=== PATIENT | female | born 1955 ===

== ENCOUNTER 2017-08-04 16:26 | Inpatient (IN) | payer MEDICAID, OTHER ==
[2017-08-04 16:26] VITALS: BMI 38.1
[2017-08-04] MEDS ORDERED: Sodium Chloride 0.9% 1,000 ML IV STA (17:11)
[2017-08-04] MEDS ORDERED: Sodium Chloride 0.9% 1,000 ML ONE ×2 (17:31→22:20)
--- NOTE | 2017-08-04 17:31 | C.PDOC ---
History Of Present Illness Patient is a 62 y/o female who presents to the ED with a complaint of generalized abdominal pain vomiting for the last 3 days. Patient admits to normal bowel movement earlier today. Patient is a poor historian. Denies any other physical complaints at this time. Time Seen by Provider: 08/04/17 16:47 Chief Complaint (Nursing): Abdominal Pain History Per: Patient History/Exam Limitations: no limitations Onset/Duration Of Symptoms: Days (3) Current Symptoms Are (Timing): Still Present Associated Symptoms: Vomiting Last Bowel Movement: Today Recent travel outside of the [place]: No Past Medical History Reviewed: Historical Data, Nursing Documentation, Vital Signs Vital Signs: Last Vital Signs Temp 99.9 F H 08/04/17 16:33 Pulse 111 H 08/04/17 16:33 Resp 21 08/04/17 16:33 BP 149/79 08/04/17 16:33 Pulse Ox 97 08/04/17 17:34 - Medical History PMH: Arthritis, Cardia Arrhythmia, Diabetes, Gastritis, Gall Bladder Disease, Hypercholesterolemia Denies: Chronic Kidney Disease Surgical History: Cholecystectomy, Endoscopy - [facility] Procedures CLOSURE SKIN & SUBCUTANEOUS NEC (07/21/14) DESTRUCT ABD WALL LESION (01/17/14) ESOPHAGOGASTRODUODENOSCOPY [EGD] W/CLOSED BIOPSY (03/10/14) TETANUS TOXOID ADMINIST (07/21/14) Family History: States: Unknown Family Hx - Social History Hx Tobacco Use: No Hx Alcohol Use: No Hx Substance Use: No - Immunization History Hx Tetanus Toxoid Vaccination: No Hx Influenza Vaccination: No Hx Pneumococcal Vaccination: No Review Of Systems Gastrointestinal: Positive for: Vomiting, Abdominal Pain (generalized) Physical Exam - Physical Exam Appears: Well, Non-toxic, Other (tearful) Skin: Normal Color, Warm, Dry Head: Atraumatic, Normacephalic Oral Mucosa: Moist Cardiovascular: Rhythm Regular, No Murmur Respiratory: Normal Breath Sounds, No Rales, No Rhonchi, No Wheezing Gastrointestinal/Abdominal: Soft, Tenderness (diffusely) ED Course And Treatment - Laboratory Results Result Diagrams: 08/04/17 17:53 08/04/17 17:53 O2 Sat by Pulse Oximetry: 97 Progress Note: CT abdomen/pelvis, UA, and blood work ordered. Protonix, zofran, and IV fluids administered. Disposition - Disposition Disposition Time: 19:00 Condition: FAIR Forms: [facility] ([place]) - Clinical Impression Clinical Impression: Abdominal pain, Vomiting - Scribe Statement The provider has reviewed the documentation as recorded by the Scribe Bertha Wilson All medical record entries made by the Scribe were at my direction and personally dictated by me. I have reviewed the chart and agree that the record accurately reflects my personal performance of the history, physical exam, medical decision making, and the department course for this patient. I have also personally directed, reviewed, and agree with the discharge instructions and disposition. Physician Patient Turnover Patient Signed Over To: Mark Marlow Handoff Comments: Pending CT abd/pelvis and dispo
[2017-08-04 18:03] LABS: SQUAMOUS EPITHIAL 1 /hpf (0-5); URINE BILIRUBIN NEGATIVE (NEGATIVE); URINE BLOOD NEGATIVE (NEGATIVE); URINE CLARITY Clear (Clear); URINE COLOR Yellow (YELLOW); URINE GLUCOSE (UA) 3+ mg/dL (Normal); URINE LEUKOCYTE ESTERASE NEG Leu/uL (Negative); URINE PROTEIN NEGATIVE (NEGATIVE); URINE UROBILINOGEN NORMAL mg/dL (0.2-1.0)
[2017-08-04 18:09] LABS: ALBUMIN 3.7 g/dL (3.5-5.0); ALT/SGPT 92 U/L (9-52); AST/SGOT 79 U/L (14-36); BLOOD UREA NITROGEN 15 mg/dL (7-17); GFR AFRICAN-AMERICAN > 60; GFR NON-AFRICAN AMERICAN > 60; LIPASE 35 U/L (23-300)
[2017-08-04 18:18] LABS: BASO % 0.6 % (0.0-2.0); EOS % 0.6 % (0.0-4.0); LYMPH # 0.5 K/uL (1.0-4.3); LYMPH % 15.7 % (20.0-40.0); MEAN CELL VOLUME 88.7 fL (81.0-99.0); MEAN CORPUSCULAR HEMOGLOBIN 31.8 pg (27.0-31.0); MEAN CORPUSCULAR HGB CONC 35.9 g/dL (33.0-37.0); MEAN PLATELET VOLUME 9.3 fL (7.2-11.7); MONO # 0.2 K/uL (0.0-0.8); MONO % 5.9 % (0.0-10.0); NEUT # 2.3 K/uL (1.8-7.0); NEUT % 77.2 % (50.0-75.0); NRBC % 0.7 % (0.0-2.0); RBC 4.84 Mil/uL (3.80-5.20); RED CELL DISTRIBUTION WIDTH 13.4 % (11.5-14.5)
[2017-08-04 18:19] LABS: HEMOGLOBIN 15.4 g/dL (11.0-16.0)
[2017-08-04] MEDS ORDERED: Iodixanol 320 MG/ML 100 ML BOTTLE IV ONE (18:45)
--- NOTE | 2017-08-04 20:45 | CT ---
EXAM: CT Abdomen and Pelvis With Intravenous Contrast EXAM DATE/TIME: 08/04/2017 5:12 PM CLINICAL HISTORY: 62 years old, female; Pain; Abdominal pain; Periumbilical; Additional info: Abd pain, vomiting TECHNIQUE: Axial computed tomography images of the abdomen and pelvis with intravenous contrast. All CT scans at this facility use one or more dose reduction techniques, viz.: automated exposure control; ma/kV adjustment per patient size (including targeted exams where dose is matched to indication; i.e. head); or iterative reconstruction technique. Coronal and sagittal reformatted images were created and reviewed. CONTRAST: 100 mL of visipaque 320 administered intravenously. COMPARISON: Prior images are not available for review. Report of the prior study is not available for review. The FINDINGS: Artifacts: Motion artifact degrades image quality. Lower thorax: Heart size is normal. There is a small hiatal hernia. There is atelectasis and scarring at the lung bases. ABDOMEN: Liver: Hepatic contours are mildly nodular. There is prominence of the caudate and left lobes. Gallbladder and bile ducts: Gallbladder is absent.There is prominence of the common duct. Pancreas: Pancreas is mildly atrophic. Spleen: The spleen is enlarged. Adrenals: unremarkable Kidneys and ureters: unremarkable Stomach and bowel: Stomach is almost completely empty. Rotation is normal. Proximal and mid small bowel is mildly dilated. There is fold thickening. Distal small bowel is decompressed. Ileocecal region is unremarkable. Appendix and terminal ileum are unremarkable.There is moderate stool in the colon. PELVIS: Appendix: See stomach and bowel Bladder: unremarkable Reproductive: Uterus and left adnexa are unremarkable.There are multiple calcifications in the right adnexa. ABDOMEN and PELVIS: Intraperitoneal space: There is no free air or free fluid. Bones/joints: There are degenerative changes in the osseus structures. There is compression deformity and wedging of T12 Soft tissues: There is a small fat containing umbilical hernia. Vasculature: There are vascular calcifications. Lymph nodes: unremarkable IMPRESSION: Cirrhosis with splenomegaly; ileus and possible enteritis, no obstruction Additional nonemergent findings as described above.
[2017-08-04] MEDS ORDERED: (Novolin R) Insulin Human Regular 100 units/ml vial SC ONE (21:07)
--- NOTE | 2017-08-04 21:18 | CP.PCM.HP ---
History of Present Illness - History of Present Illness History of Present Illness: CC: "abdominal pain" HPI: 62 year old female with past medical history of DM and diabetic neuropathy comes to the ER complaining of abdominal pain x 8days. Patient describes the pain as constant, cramping, 8/10. She has not taken anything for the pain. She did not come in for evaluation earlier because she thought it would resolve on its own. Patient has not eaten food in the last 2 days. Patient states that she has been vomiting for the last 2 days, including 5 times today, denies blood in the vomit. Yesterday patient states that she had a normal bowel movement, denies blood in stool. Patient states that she has chills. Patient denies fever, shortness of breath, chest pain, palpitations, diarrhea, and constipation. PMD: Dr. Espinosa Past Medical History: diabetes, diabetic neuropathy, possible hepatitis Past Surgical History: cholecystectomy, tubal ligation, foot surgery Medications: Metformin 500mg BID, Gabapentin 300mg bid Allergies: NKDA Family History: mother from complications of diabetes, father is healthy Social History: Lives with [facility], does not work, denies alcohol, smoking or illicit drug use. Present on Admission - Present on Admission Any Indicators Present on Admission: No Review of Systems - Constitutional Constitutional: Chills. absent: Fever, Weight Loss - EENT Eyes: absent: Blurred Vision - Cardiovascular Cardiovascular: absent: Chest Pain, Dyspnea - Respiratory Respiratory: absent: Dyspnea - Gastrointestinal Gastrointestinal: Nausea, Vomiting. absent: Constipation, Diarrhea - Genitourinary Genitourinary: absent: Dysuria - Neurological Neurological: absent: Numbness Past Patient History - Past Medical History & Family History Past Medical History?: Yes - Past Social History Smoking Status: Never Smoked - CARDIAC Hx Cardia Arrhythmia: Yes Hx Hypercholesterolemia: Yes - PULMONARY Hx Respiratory Disorders: No - NEUROLOGICAL Hx Neurological Disorder: No - HEENT Hx HEENT Problems: Yes Hx Cataracts: Yes (IMMATURE LEFT EYE) - RENAL Hx Chronic Kidney Disease: No - ENDOCRINE/METABOLIC Hx Endocrine Disorders: Yes Hx Diabetes Mellitus Type 2: Yes - HEMATOLOGICAL/ONCOLOGICAL Hx Blood Disorders: No - INTEGUMENTARY Hx Dermatological Problems: No - MUSCULOSKELETAL/RHEUMATOLOGICAL Hx Arthritis: Yes - GASTROINTESTINAL Hx Gall Bladder Disease: Yes Hx Gastritis: Yes - GENITOURINARY/GYNECOLOGICAL Hx Genitourinary Disorders: No - PSYCHIATRIC Hx Substance Use: No - SURGICAL HISTORY Hx Cholecystectomy: Yes - ANESTHESIA Hx Anesthesia: Yes Hx Anesthesia Reactions: No Hx Malignant Hyperthermia: No Meds Allergies/Adverse Reactions: Allergies Allergy/AdvReac Type Severity Reaction Status Date / Time No Known Allergies Allergy Verified 08/04/17 16:33 Physical Exam - Constitutional Appears: Non-toxic, No Acute Distress - Head Exam Head Exam: ATRAUMATIC, NORMAL INSPECTION - Eye Exam Eye Exam: EOMI, Normal appearance, PERRL. absent: Scleral icterus Pupil Exam: NORMAL ACCOMODATION - ENT Exam ENT Exam: Mucous Membranes Moist - Respiratory Exam Respiratory Exam: Clear to Auscultation Bilateral, NORMAL BREATHING PATTERN. absent: Rales, Rhonchi, Wheezes, Stridor - Cardiovascular Exam Cardiovascular Exam: REGULAR RHYTHM, RRR, +S1, +S2 - GI/Abdominal Exam GI & Abdominal Exam: Normal Bowel Sounds, Soft, Tenderness (LUQ tenderness). absent: Distended, Guarding - Extremities Exam Extremities exam: Positive for: normal capillary refill, normal inspection, pedal pulses present. Negative for: pedal edema, tenderness - Neurological Exam Neurological exam: Alert, Oriented x3 - Psychiatric Exam Psychiatric exam: Normal Affect, Normal Mood - Skin Skin Exam: Normal Color Results - Vital Signs Recent Vital Signs: Last Vital Signs Temp 99.5 F 08/04/17 19:25 Pulse 106 H 08/04/17 19:25 Resp 20 08/04/17 19:25 BP 146/72 08/04/17 19:25 Pulse Ox 97 08/04/17 19:25 - Labs Result Diagrams: 08/04/17 17:53 08/04/17 17:53 Labs: Laboratory Results - last 24 hr 08/04/17 08/04/17 08/04/17 17:53 17:53 17:53 WBC 3.0 L RBC 4.84 Hgb 15.4 Hct 42.9 MCV 88.7 D MCH 31.8 H MCHC 35.9 RDW 13.4 Plt Count 81 L MPV 9.3 Neut % (Auto) 77.2 H Lymph % (Auto) 15.7 L Tift % (Auto) 5.9 Eos % (Auto) 0.6 Baso % (Auto) 0.6 Neut # (Auto) 2.3 Lymph # (Auto) 0.5 L Tift # (Auto) 0.2 Eos # (Auto) 0.0 Baso # (Auto) 0.0 Sodium 134 Potassium 4.3 Chloride 95 L Carbon Dioxide 27 Anion Gap 16 BUN 15 Creatinine 0.6 L Est GFR ( Amer) > 60 Est GFR (Non-Af Amer) > 60 Random Glucose 312 H Calcium 9.0 Total Bilirubin 1.5 H AST 79 H D ALT 92 H Alkaline Phosphatase 158 H Total Protein 7.4 Albumin 3.7 Globulin 3.7 Albumin/Globulin Ratio 1.0 Lipase 35 Urine Color Yellow Urine Clarity Clear Urine pH 5.0 Ur Specific [place] 1.037 H Urine Protein Negative Urine Glucose (UA) 3+ H Urine Ketones 1+ H Urine Blood Negative Urine Nitrate Negative Urine Bilirubin Negative Urine Urobilinogen Normal Ur Leukocyte Esterase Neg Urine WBC (Auto) 1 Urine RBC (Auto) 2 Ur Squamous Epith Cells 1 Assessment & Plan - Assessment and Plan (Free Text) Assessment: 1.) LUQ abdominal pain - secondary to possible enteritis - CT abdomen/pelvis: Cirrhosis with splenomegaly; ileus and possible enteritis , no obstruction. - f/u blood culture - Medications: * Cipro 400mg q12h * Flagyl 500mg q8h * Protonix 40mg q12h * NS @100cc/hr - Clear Liquid Diet - advance as tolerated 2.) Leukopenia - WBC 3.0 - f/u HIV - Continue to monitor 3.) History of Hepatitis - Patient does not know what kind - f/u hepatitis Panel 4.) Elevated Liver enzymes - possibly secondary to hepatitis - AST/ALT: 79/92 - Continue to monitor 5.) Thrombocytopenia - Platelets 81 - f/u HIV - f/u PT/PTT 6.) History of Diabetes - Accu checks - ISS - Hypoglycemia protocol - f/u hA1c 7.) Diabetic peripheral neuropathy - continue Gabapentin 300mg bid 8.) Prophylaxis - VTE contraindication due to thrombocytopenia - SCDs - Protonix 40mg q12h Case discussed with Dr. Marli Negrete PGY-1
[2017-08-04] MEDS ORDERED: (Novolin R) Insulin Human Regular 100 units/ml vial ONE (21:19)
[2017-08-04] MEDS ORDERED: Ciprofloxacin 400mg/200ml D5W 400 MG/200 ML BAG IVPB ONE (22:20)
[2017-08-04] MEDS ORDERED: metroNIDAZOLE IV 500 mg/100 ml 500 MG/100 ML BAG ONE (22:20)
[2017-08-04] MEDS: metroNIDAZOLE IV 500 mg/100 ml 500 MG/100 ML BAG IVPB SCH (22:25)
[2017-08-04] MEDS: Sodium Chloride 0.9% 1,000 ML IV SCH (22:35)
[2017-08-04] MEDS: Ciprofloxacin 400mg/200ml D5W 400 MG/200 ML BAG IVPB SCH (23:00)
[2017-08-04 23:42] LABS: INR 1.3; PROTHROMBIN TIME 14.3 SECONDS (9.7-12.2)
[2017-08-04] MEDS ORDERED: Dextrose 50% SYRINGE Inj (50 ml) IV PRN (23:44)
[2017-08-04] MEDS ORDERED: Glucagon Recombinant 1 mg Inj IM PRN (23:44)
[2017-08-05 01:30] VITALS: RESP 20
[2017-08-05] MEDS: metroNIDAZOLE IV 500 mg/100 ml 500 MG/100 ML BAG IVPB SCH ×3 (05:15→21:33)
--- NOTE | 2017-08-05 06:40 | CP.PCM.PN ---
<Richy Adkins - Last Filed: 08/05/17 10:47> Subjective - Date & Time of Evaluation Date of Evaluation: 08/05/17 Time of Evaluation: 06:38 - Subjective Subjective: PGY-[address] Calles's service: Pt seen and examined at bedside. Nursing reports patient afebrile overnight. Patient found lying comfortably in bed. Denies any abdominal pain, nausea or vomiting overnight. States she feels much better since admission and is ready to try solid food. Objective - Vital Signs/Intake and Output Vital Signs (last 24 hours): Temp Pulse Resp BP Pulse Ox 98.7 F 81 20 108/65 98 08/05/17 01:29 08/05/17 01:29 08/05/17 01:29 08/05/17 01:29 08/05/17 01:29 - Medications Medications: Current Medications Dextrose (Dextrose 50% Inj) 0 ml IV STAT PRN; Protocol PRN Reason: Hypoglycemia Protocol Dextrose (Glutose 15) 0 gm PO ONCE PRN; Protocol PRN Reason: Hypoglycemia Protocol Gabapentin (Neurontin) 300 mg PO BID JUSTIN Glucagon (Glucagen Diagnostic Kit) 0 mg IM STAT PRN; Protocol PRN Reason: Hypoglycemia Protocol Ciprofloxacin (Cipro 400mg/200ml Dsw) 400 mg in 200 mls @ 133 mls/hr IVPB Q12H JUSTIN PRN Reason: Protocol Last Admin: 08/04/17 23:00 Dose: 133 mls/hr Metronidazole (Flagyl) 500 mg in 100 mls @ 100 mls/hr IVPB Q8 JUSTIN PRN Reason: Protocol Last Admin: 08/05/17 05:15 Dose: 100 mls/hr Sodium Chloride (Sodium Chloride 0.9%) 1,000 mls @ 100 mls/hr IV .Q10H JUSTIN Last Admin: 08/04/17 22:35 Dose: 100 mls/hr Dextrose (Dextrose 5% In Water 1000 Ml) 1,000 mls @ 0 mls/hr IV .Q0M PRN; Protocol; Per Protocol PRN Reason: Hypoglycemia Protocol Insulin Human Regular (Novolin R) 0 unit SC ACHS JUSTIN PRN Reason: Protocol Pantoprazole Sodium (Protonix Inj) 40 mg IVP Q12H [facility] Last Admin: 08/04/17 22:23 Dose: 40 mg - Labs Labs: 08/04/17 17:53 08/04/17 17:53 PT 14.3 SECONDS (9.7-12.2) H 08/04/17 23:32 INR 1.3 08/04/17 23:32 APTT 34 SECONDS (21-34) 08/04/17 23:32 - Additional Findings Additional findings: - Constitutional Appears: Non-toxic, No Acute Distress - Head Exam Head Exam: ATRAUMATIC, NORMAL INSPECTION - Eye Exam Eye Exam: EOMI, Normal appearance, PERRL. absent: Scleral icterus Pupil Exam: NORMAL ACCOMODATION - ENT Exam ENT Exam: Mucous Membranes Moist - Respiratory Exam Respiratory Exam: Clear to Auscultation Bilateral, NORMAL BREATHING PATTERN. absent: Rales, Rhonchi, Wheezes, Stridor - Cardiovascular Exam Cardiovascular Exam: REGULAR RHYTHM, RRR, +S1, +S2 - GI/Abdominal Exam GI & Abdominal Exam: Normal Bowel Sounds, Soft. absent: Distended, Guarding, Tenderness - Extremities Exam Extremities exam: Positive for: normal capillary refill, normal inspection, pedal pulses present. Negative for: pedal edema, tenderness - Neurological Exam Neurological exam: Alert, Oriented x3 - Psychiatric Exam Psychiatric exam: Normal Affect, Normal Mood - Skin Skin Exam: Normal Color Assessment and Plan - Assessment and Plan (Free Text) Plan: LUQ abdominal pain - secondary to possible enteritis - Afebrile overnight - Lipase 35 - CT abdomen/pelvis: Cirrhosis with splenomegaly; possible enteritis, no obstruction. - Medications: * Cipro 400mg q12h * Flagyl 500mg q8h * Protonix 40mg q12h * NS @100cc/hr - f/u blood culture - diet advanced to soft Leukopenia - WBC 3.0 - f/u HIV - Continue to monitor History of Hepatitis - Patient does not know what kind - f/u hepatitis Panel Transaminitis - possibly secondary to hepatitis/cirrhosis - AST/ALT: 79/92 - Continue to monitor Elevated INR INR 1.3 etiology: cirrhosis Thrombocytopenia - Platelets 81 - f/u HIV Diabetes Mellitus - Accu checks - ISS - Hypoglycemia protocol - f/u hA1c Diabetic peripheral neuropathy - continue Gabapentin 300mg bid Electrolyte abnormality Mg 1.5, repleted Prophylaxis - VTE contraindication due to thrombocytopenia - SCDs - Protonix 40mg q12h Richy Adkins PGY-2 D/w DR. Calles <Guido Calles Jr. - Last Filed: 08/05/17 14:59> Objective - Vital Signs/Intake and Output Vital Signs (last 24 hours): Temp Pulse Resp BP Pulse Ox 98.7 F 97 H 20 127/86 96 08/05/17 08:00 08/05/17 08:00 08/05/17 08:00 08/05/17 08:00 08/05/17 08:00 Intake and Output: 08/05/17 08/05/17 06:59 18:59 Intake Total 820 Balance 820 - Medications Medications: Current Medications Dextrose (Dextrose 50% Inj) 0 ml IV STAT PRN; Protocol PRN Reason: Hypoglycemia Protocol Dextrose (Glutose 15) 0 gm PO ONCE PRN; Protocol PRN Reason: Hypoglycemia Protocol Gabapentin (Neurontin) 300 mg PO BID [facility] Last Admin: 08/05/17 09:56 Dose: 300 mg Glucagon (Glucagen Diagnostic Kit) 0 mg IM STAT PRN; Protocol PRN Reason: Hypoglycemia Protocol Ciprofloxacin (Cipro 400mg/200ml Dsw) 400 mg in 200 mls @ 133 mls/hr IVPB Q12H JUSTIN PRN Reason: Protocol Last Admin: 08/05/17 09:55 Dose: 133 mls/hr Metronidazole (Flagyl) 500 mg in 100 mls @ 100 mls/hr IVPB Q8 JUSTIN PRN Reason: Protocol Last Admin: 08/05/17 14:41 Dose: 100 mls/hr Sodium Chloride (Sodium Chloride 0.9%) 1,000 mls @ 100 mls/hr IV .Q10H JUSTIN Last Admin: 08/05/17 09:15 Dose: 100 mls/hr Dextrose (Dextrose 5% In Water 1000 Ml) 1,000 mls @ 0 mls/hr IV .Q0M PRN; Protocol; Per Protocol PRN Reason: Hypoglycemia Protocol Insulin Human Regular (Novolin R) 0 unit SC ACHS JUSTIN PRN Reason: Protocol Last Admin: 08/05/17 12:19 Dose: 4 unit Metoclopramide HCl (Reglan) 10 mg IVP Q6H PRN PRN Reason: Nausea/Vomiting Pantoprazole Sodium (Protonix Inj) 40 mg IVP Q12H JUSTIN Last Admin: 08/05/17 09:57 Dose: 40 mg - Labs Labs: 08/05/17 08:07 08/05/17 08:07 PT 14.3 SECONDS (9.7-12.2) H 08/04/17 23:32 INR 1.3 08/04/17 23:32 APTT 34 SECONDS (21-34) 08/04/17 23:32 Attending/Attestation - Attestation I have personally seen and examined this patient.: Yes I have fully participated in the care of the patient.: Yes I have reviewed all pertinent clinical information, including history, physical exam and plan: Yes Notes (Text): 08/05/17 14:59 agree with resident note findings and plan of care.
[2017-08-05 08:24] LABS: BASO % 1.6 % (0.0-2.0); EOS % 1.9 % (0.0-4.0); HEMOGLOBIN 14.2 g/dL (11.0-16.0); LYMPH # 0.5 K/uL (1.0-4.3); LYMPH % 24.5 % (20.0-40.0); MEAN CELL VOLUME 88.7 fL (81.0-99.0); MEAN CORPUSCULAR HEMOGLOBIN 31.6 pg (27.0-31.0); MEAN CORPUSCULAR HGB CONC 35.6 g/dL (33.0-37.0); MEAN PLATELET VOLUME 8.9 fL (7.2-11.7); MONO # 0.2 K/uL (0.0-0.8); MONO % 9.3 % (0.0-10.0); NEUT # 1.3 K/uL (1.8-7.0); NEUT % 62.7 % (50.0-75.0); NRBC % 0.3 % (0.0-2.0); RBC 4.5 Mil/uL (3.80-5.20); RED CELL DISTRIBUTION WIDTH 13.4 % (11.5-14.5); WHITE BLOOD COUNT 2.1 K/uL (4.8-10.8)
[2017-08-05] MEDS: (Novolin R) Insulin Human Regular 100 units/ml vial SC SCH ×4 (08:30→22:02)
[2017-08-05 09:00] LABS: ALB/GLOB RATIO 0.9 (1.0-2.1); ALBUMIN 3.1 g/dL (3.5-5.0); ALT/SGPT 89 U/L (9-52); AST/SGOT 84 U/L (14-36); BLOOD UREA NITROGEN 11 mg/dL (7-17); CALCIUM 8.2 mg/dl (8.6-10.4); GFR AFRICAN-AMERICAN > 60; GFR NON-AFRICAN AMERICAN > 60
[2017-08-05] MEDS: Sodium Chloride 0.9% 1,000 ML IV SCH ×2 (09:15→21:38)
[2017-08-05] MEDS: Ciprofloxacin 400mg/200ml D5W 400 MG/200 ML BAG IVPB SCH ×2 (09:55→22:45)
[2017-08-05] MEDS: Magnesium Sulfate 1 gm in D5W 1 GM/100 ML BAG IVPB SCH ×2 (12:05→13:05)
[2017-08-06] MEDS: Sodium Chloride 0.9% 1,000 ML IV SCH ×3 (03:24→17:37)
[2017-08-06] MEDS: metroNIDAZOLE IV 500 mg/100 ml 500 MG/100 ML BAG IVPB SCH ×3 (05:23→21:37)
[2017-08-06] MEDS: (Novolin R) Insulin Human Regular 100 units/ml vial SC SCH ×4 (08:06→21:38)
[2017-08-06 08:18] LABS: BASO % 1.1 % (0.0-2.0); EOS # 0.1 K/uL (0.0-0.7); EOS % 4.1 % (0.0-4.0); HEMOGLOBIN 13.9 g/dL (11.0-16.0); LYMPH # 0.9 K/uL (1.0-4.3); LYMPH % 44.9 % (20.0-40.0); MEAN CELL VOLUME 89.5 fL (81.0-99.0); MEAN CORPUSCULAR HEMOGLOBIN 31.2 pg (27.0-31.0); MEAN CORPUSCULAR HGB CONC 34.8 g/dL (33.0-37.0); MONO # 0.3 K/uL (0.0-0.8); MONO % 12.2 % (0.0-10.0); NEUT # 0.8 K/uL (1.8-7.0); NEUT % 37.7 % (50.0-75.0); NRBC % 0.6 % (0.0-2.0); RBC 4.44 Mil/uL (3.80-5.20); RED CELL DISTRIBUTION WIDTH 13.4 % (11.5-14.5); WHITE BLOOD COUNT 2.1 K/uL (4.8-10.8)
--- NOTE | 2017-08-06 08:45 | CP.PCM.PN ---
Subjective - Date & Time of Evaluation Date of Evaluation: 08/06/17 Time of Evaluation: 08:42 - Subjective Subjective: PGY-[address] Calles's service: Pt seen and examined at bedside. Nursing reports patient afebrile overnight. Patient denies fever, chills, nausea, or vomiting overnight, but admits 3 episodes of watery diarrhea last night. Patient hemoglobin A1c 12.3 - had long conversation about importance of controlling BG and tank terminal gauger effects on heart/ kidneys/eyes. No chest pain, SOB, palpitations, fevers or chills. Objective - Vital Signs/Intake and Output Vital Signs (last 24 hours): Temp Pulse Resp BP Pulse Ox 98.3 F 76 20 114/70 95 08/06/17 08:26 08/06/17 08:26 08/06/17 08:26 08/06/17 08:26 08/06/17 08:26 Intake and Output: 08/06/17 08/06/17 06:59 18:59 Intake Total 2039 Balance 2039 - Medications Medications: Current Medications Dextrose (Dextrose 50% Inj) 0 ml IV STAT PRN; Protocol PRN Reason: Hypoglycemia Protocol Dextrose (Glutose 15) 0 gm PO ONCE PRN; Protocol PRN Reason: Hypoglycemia Protocol Gabapentin (Neurontin) 300 mg PO BID [facility] Last Admin: 08/05/17 17:22 Dose: 300 mg Glucagon (Glucagen Diagnostic Kit) 0 mg IM STAT PRN; Protocol PRN Reason: Hypoglycemia Protocol Ciprofloxacin (Cipro 400mg/200ml Dsw) 400 mg in 200 mls @ 133 mls/hr IVPB Q12H JUSTIN PRN Reason: Protocol Last Admin: 08/05/17 22:45 Dose: 133 mls/hr Metronidazole (Flagyl) 500 mg in 100 mls @ 100 mls/hr IVPB Q8 JUSTIN PRN Reason: Protocol Last Admin: 08/06/17 05:23 Dose: 100 mls/hr Sodium Chloride (Sodium Chloride 0.9%) 1,000 mls @ 100 mls/hr IV .Q10H [facility] Last Admin: 08/06/17 03:24 Dose: 100 mls/hr Dextrose (Dextrose 5% In Water 1000 Ml) 1,000 mls @ 0 mls/hr IV .Q0M PRN; Protocol; Per Protocol PRN Reason: Hypoglycemia Protocol Insulin Human Regular (Novolin R) 0 unit SC ACHS JUSTIN PRN Reason: Protocol Last Admin: 08/06/17 08:06 Dose: 3 unit Metoclopramide HCl (Reglan) 10 mg IVP Q6H PRN PRN Reason: Nausea/Vomiting Pantoprazole Sodium (Protonix Inj) 40 mg IVP Q12H [facility] Last Admin: 08/05/17 21:37 Dose: 40 mg - Labs Labs: 08/06/17 08:05 08/05/17 08:07 PT 14.3 SECONDS (9.7-12.2) H 08/04/17 23:32 INR 1.3 08/04/17 23:32 APTT 34 SECONDS (21-34) 08/04/17 23:32 - Additional Findings Additional findings: - Constitutional Appears: Non-toxic, No Acute Distress - Head Exam Head Exam: ATRAUMATIC, NORMAL INSPECTION - Eye Exam Eye Exam: EOMI, Normal appearance, PERRL. absent: Scleral icterus Pupil Exam: NORMAL ACCOMODATION - ENT Exam ENT Exam: Mucous Membranes Moist - Respiratory Exam Respiratory Exam: Clear to Auscultation Bilateral, NORMAL BREATHING PATTERN. absent: Rales, Rhonchi, Wheezes, Stridor - Cardiovascular Exam Cardiovascular Exam: REGULAR RHYTHM, RRR, +S1, +S2 - GI/Abdominal Exam GI & Abdominal Exam: Normal Bowel Sounds, Soft. absent: Distended, Guarding, Tenderness - Extremities Exam Extremities exam: Positive for: normal capillary refill, normal inspection, pedal pulses present. Negative for: pedal edema, tenderness - Neurological Exam Neurological exam: Alert, Oriented x3 - Psychiatric Exam Psychiatric exam: Normal Affect, Normal Mood - Skin Skin Exam: Normal Color Assessment and Plan - Assessment and Plan (Free Text) Plan: LUQ abdominal pain - secondary to possible enteritis - Afebrile overnight - Lipase 35 - CT abdomen/pelvis: Cirrhosis with splenomegaly; possible enteritis, no obstruction. - Medications: * Cipro 400mg q12h * Flagyl 500mg q8h * Protonix 40mg q12h * NS @100cc/hr - f/u blood culture - diet advanced to soft Leukopenia - WBC 3.0 - f/u HIV, hepatitis - Continue to monitor History of Hepatitis - Patient does not know what kind - f/u hepatitis Panel Transaminitis - possibly secondary to hepatitis/cirrhosis - AST/ALT: 79/92 - Continue to monitor Elevated INR INR 1.3 etiology: cirrhosis Thrombocytopenia - Platelets 81 - f/u HIV Diabetes Mellitus, uncontrolled - A1c 12.3 - Accu checks - HISS - Hypoglycemia protocol Diabetic peripheral neuropathy - continue Gabapentin 300mg bid Electrolyte abnormality Mg 1.5, repleted Prophylaxis - VTE contraindication due to thrombocytopenia - SCDs - Protonix 40mg q12h Disposition: Richy Adkins PGY-2 D/w DR. Calles
[2017-08-06 09:05] LABS: ALB/GLOB RATIO 0.9 (1.0-2.1); ALT/SGPT 84 U/L (9-52); AST/SGOT 94 U/L (14-36); BLOOD UREA NITROGEN 9 mg/dL (7-17); CALCIUM 8.2 mg/dl (8.6-10.4); GFR AFRICAN-AMERICAN > 60; GFR NON-AFRICAN AMERICAN > 60
[2017-08-06] MEDS: Ciprofloxacin 400mg/200ml D5W 400 MG/200 ML BAG IVPB SCH ×2 (10:54→22:46)
[2017-08-06] MEDS: Hydrocortisone 2.5% Rectal Cream(30 gm) PR SCH (20:45)
[2017-08-07] MEDS: Sodium Chloride 0.9% 1,000 ML IV SCH ×4 (01:12→20:15)
[2017-08-07] MEDS: metroNIDAZOLE IV 500 mg/100 ml 500 MG/100 ML BAG IVPB SCH ×3 (05:20→21:26)
[2017-08-07] MEDS: (Novolin R) Insulin Human Regular 100 units/ml vial SC SCH ×4 (07:55→21:39)
[2017-08-07 07:59] LABS: EOS # 0.1 K/uL (0.0-0.7); LYMPH # 0.8 K/uL (1.0-4.3); MEAN CELL VOLUME 88.2 fL (81.0-99.0); MEAN PLATELET VOLUME 8.6 fL (7.2-11.7); MONO # 0.2 K/uL (0.0-0.8); NEUT # 0.6 K/uL (1.8-7.0)
[2017-08-07 08:11] LABS: BASO % 0.7 % (0.0-2.0); EOS % 5.1 % (0.0-4.0); HEMOGLOBIN 13.8 g/dL (11.0-16.0); LYMPH % 48.8 % (20.0-40.0); MEAN CORPUSCULAR HEMOGLOBIN 31.4 pg (27.0-31.0); MEAN CORPUSCULAR HGB CONC 35.6 g/dL (33.0-37.0); MONO % 11.4 % (0.0-10.0); NRBC % 0.3 % (0.0-2.0); RBC 4.41 Mil/uL (3.80-5.20); RED CELL DISTRIBUTION WIDTH 13.4 % (11.5-14.5)
[2017-08-07 08:13] LABS: ALB/GLOB RATIO 0.9 (1.0-2.1); ALT/SGPT 90 U/L (9-52); AST/SGOT 93 U/L (14-36); BLOOD UREA NITROGEN 6 mg/dL (7-17); CALCIUM 8.4 mg/dl (8.6-10.4); GFR AFRICAN-AMERICAN > 60; GFR NON-AFRICAN AMERICAN > 60
[2017-08-07 08:17] LABS: HEPATITIS B SURFACE AG Negative (NEGATIVE)
[2017-08-07 08:23] LABS: HEPATITIS A IGM NEGATIVE (NEGATIVE); HEPATITIS B CORE AB NEGATIVE (NEGATIVE)
[2017-08-07 08:27] LABS: WHITE BLOOD COUNT 1.7 K/uL (4.8-10.8)
[2017-08-07 08:34] LABS: HEPATITIS C ANTIBODY NEGATIVE (NEGATIVE)
[2017-08-07] MEDS: Ciprofloxacin 400mg/200ml D5W 400 MG/200 ML BAG IVPB SCH ×2 (10:16→21:27)
[2017-08-07] MEDS: Insulin Detemir 100 units/ml Vial (Levemir) SC SCH ×2 (10:17→21:30)
[2017-08-07] MEDS: Hydrocortisone 2.5% Rectal Cream(30 gm) PR SCH ×2 (10:18→18:42)
[2017-08-07] MEDS ORDERED: MethylPREDNISolone 40 mg Vial IVP STA (12:44)
--- NOTE | 2017-08-07 14:20 | CP.PCM.PN ---
Subjective - Date & Time of Evaluation Date of Evaluation: 08/07/17 Time of Evaluation: 14:18 - Subjective Subjective: Progress Note for Dr. Calles Patient seen and examined at bedside. No acute events overnight. Patient is aware that we are currently adjusting her diabetes medications and that we are following cultures. Patient has no complaints today. Patient denies fever, chills. Patient admits to mild abdominal pain. Objective - Vital Signs/Intake and Output Vital Signs (last 24 hours): Temp Pulse Resp BP Pulse Ox 98.2 F 72 20 119/74 97 08/07/17 07:49 08/07/17 07:49 08/07/17 07:49 08/07/17 07:49 08/07/17 07:49 Intake and Output: 08/07/17 08/07/17 06:59 18:59 Intake Total 1840 Balance 1840 - Medications Medications: Current Medications Dextrose (Dextrose 50% Inj) 0 ml IV STAT PRN; Protocol PRN Reason: Hypoglycemia Protocol Dextrose (Glutose 15) 0 gm PO ONCE PRN; Protocol PRN Reason: Hypoglycemia Protocol Gabapentin (Neurontin) 300 mg PO BID [facility] Last Admin: 08/07/17 10:17 Dose: 300 mg Glucagon (Glucagen Diagnostic Kit) 0 mg IM STAT PRN; Protocol PRN Reason: Hypoglycemia Protocol Hydrocortisone (Anusol-Hc) 0 gm TN BID [facility] Last Admin: 08/07/17 10:18 Dose: 1 applic Ciprofloxacin (Cipro 400mg/200ml Dsw) 400 mg in 200 mls @ 133 mls/hr IVPB Q12H JUSTIN PRN Reason: Protocol Last Admin: 08/07/17 10:16 Dose: 133 mls/hr Metronidazole (Flagyl) 500 mg in 100 mls @ 100 mls/hr IVPB Q8 JUSTIN PRN Reason: Protocol Last Admin: 08/07/17 05:20 Dose: 100 mls/hr Sodium Chloride (Sodium Chloride 0.9%) 1,000 mls @ 100 mls/hr IV .Q10H [facility] Last Admin: 08/07/17 11:53 Dose: Not Given Dextrose (Dextrose 5% In Water 1000 Ml) 1,000 mls @ 0 mls/hr IV .Q0M PRN; Protocol; Per Protocol PRN Reason: Hypoglycemia Protocol Magnesium Sulfate/Dextrose (Magnesium Sulfate 1 Gm/100 Ml D5w) 1 gm in 100 mls @ 300 mls/hr IVPB Q30M [facility] Stop: 08/07/17 15:19 Insulin Detemir (Levemir) 10 unit SC Q12 [facility] Last Admin: 08/07/17 10:17 Dose: 10 unit Insulin Human Regular (Novolin R) 0 unit SC ACHS JUSTIN PRN Reason: Protocol Last Admin: 08/07/17 11:52 Dose: 10 unit Methylprednisolone (Solu-Medrol) 40 mg IVP Q12 [facility] Metoclopramide HCl (Reglan) 10 mg IVP Q6H PRN PRN Reason: Nausea/Vomiting Pantoprazole Sodium (Protonix Inj) 40 mg IVP Q12H [facility] Last Admin: 08/07/17 10:15 Dose: 40 mg - Labs Labs: 08/07/17 07:42 08/07/17 07:42 PT 14.3 SECONDS (9.7-12.2) H 08/04/17 23:32 INR 1.3 08/04/17 23:32 APTT 34 SECONDS (21-34) 08/04/17 23:32 - Additional Findings Additional findings: - Constitutional Appears: Non-toxic, No Acute Distress - Head Exam Head Exam: ATRAUMATIC, NORMAL INSPECTION - Eye Exam Eye Exam: EOMI, Normal appearance, PERRL. absent: Scleral icterus Pupil Exam: NORMAL ACCOMODATION - ENT Exam ENT Exam: Mucous Membranes Moist - Respiratory Exam Respiratory Exam: Clear to Auscultation Bilateral, NORMAL BREATHING PATTERN. absent: Rales, Rhonchi, Wheezes, Stridor - Cardiovascular Exam Cardiovascular Exam: REGULAR RHYTHM, RRR, +S1, +S2 - GI/Abdominal Exam GI & Abdominal Exam: Normal Bowel Sounds, Soft. absent: Distended, Guarding, Tenderness - Extremities Exam Extremities exam: Positive for: normal capillary refill, normal inspection, pedal pulses present. Negative for: pedal edema, tenderness - Neurological Exam Neurological exam: Alert, Oriented x3 - Psychiatric Exam Psychiatric exam: Normal Affect, Normal Mood - Skin Skin Exam: Normal Color Assessment and Plan - Assessment and Plan (Free Text) Assessment: LUQ abdominal pain - secondary to possible enteritis - Afebrile overnight - Lipase 35 - CT abdomen/pelvis: Cirrhosis with splenomegaly; possible enteritis, no obstruction. - Medications: * Cipro 400mg q12h * Flagyl 500mg q8h * Protonix 40mg q12h * NS @100cc/hr - f/u blood culture - diet advanced to soft Leukopenia - WBC 3.0 - f/u HIV, hepatitis - Continue to monitor History of Hepatitis - Patient does not know what kind - f/u hepatitis Panel Transaminitis - possibly secondary to hepatitis/cirrhosis - AST/ALT: 79/92 - Continue to monitor Elevated INR INR 1.3 etiology: cirrhosis Thrombocytopenia - Platelets 81 - f/u HIV Diabetes Mellitus, uncontrolled - A1c 12.3 - Accu checks - HISS - Hypoglycemia protocol Diabetic peripheral neuropathy - continue Gabapentin 300mg bid Electrolyte abnormality Mg 1.5, repleted Prophylaxis - VTE contraindication due to thrombocytopenia - SCDs - Protonix 40mg q12h Disposition: Dr. Marli Cruz, DO PGY1
[2017-08-07] MEDS: Magnesium Sulfate 1 gm in D5W 1 GM/100 ML BAG IVPB SCH (15:24)
[2017-08-07] MEDS: MethylPREDNISolone 40 mg Vial IVP SCH (22:00)
[2017-08-07] MEDS ORDERED: MethylPREDNISolone 40 mg Vial IVP SCH (23:00)
[2017-08-08] MEDS: metroNIDAZOLE IV 500 mg/100 ml 500 MG/100 ML BAG IVPB SCH ×3 (05:10→21:00)
[2017-08-08 06:59] LABS: BASO % 0.3 % (0.0-2.0); HEMOGLOBIN 14.5 g/dL (11.0-16.0); LYMPH # 0.7 K/uL (1.0-4.3); LYMPH % 28.4 % (20.0-40.0); MEAN CELL VOLUME 88.5 fL (81.0-99.0); MEAN CORPUSCULAR HEMOGLOBIN 31.7 pg (27.0-31.0); MEAN CORPUSCULAR HGB CONC 35.8 g/dL (33.0-37.0); MEAN PLATELET VOLUME 8.9 fL (7.2-11.7); MONO # 0.2 K/uL (0.0-0.8); MONO % 6.4 % (0.0-10.0); NEUT # 1.5 K/uL (1.8-7.0); NEUT % 64.9 % (50.0-75.0); NRBC % 0.2 % (0.0-2.0); RBC 4.59 Mil/uL (3.80-5.20); WHITE BLOOD COUNT 2.4 K/uL (4.8-10.8)
[2017-08-08 07:06] LABS: ALB/GLOB RATIO 0.9 (1.0-2.1); ALBUMIN 3.2 g/dL (3.5-5.0); ALT/SGPT 92 U/L (9-52); AST/SGOT 83 U/L (14-36); BLOOD UREA NITROGEN 12 mg/dL (7-17); CALCIUM 8.9 mg/dl (8.6-10.4); GFR AFRICAN-AMERICAN > 60; GFR NON-AFRICAN AMERICAN > 60
[2017-08-08 07:46] VITALS: O2SAT 97
[2017-08-08] MEDS: (Novolin R) Insulin Human Regular 100 units/ml vial SC SCH ×4 (08:12→21:31)
[2017-08-08] MEDS: Ciprofloxacin 400mg/200ml D5W 400 MG/200 ML BAG IVPB SCH ×2 (10:32→22:29)
[2017-08-08] MEDS: MethylPREDNISolone 40 mg Vial IVP SCH ×2 (10:35→21:28)
[2017-08-08] MEDS: Insulin Detemir 100 units/ml Vial (Levemir) SC SCH ×2 (10:39→21:32)
[2017-08-08] MEDS: Hydrocortisone 2.5% Rectal Cream(30 gm) PR SCH ×2 (10:44→18:58)
[2017-08-08] MEDS: Sodium Chloride 0.9% 1,000 ML IV SCH ×2 (12:21→20:00)
[2017-08-08 14:58] LABS: SQUAMOUS EPITHIAL < 1 /hpf (0-5); URINE BILIRUBIN NEGATIVE (NEGATIVE); URINE BLOOD NEGATIVE (NEGATIVE); URINE CLARITY Clear (Clear); URINE COLOR Straw (YELLOW); URINE GLUCOSE (UA) 3+ mg/dL (Normal); URINE LEUKOCYTE ESTERASE NEG Leu/uL (Negative); URINE PROTEIN NEGATIVE (NEGATIVE); URINE UROBILINOGEN NORMAL mg/dL (0.2-1.0)
--- NOTE | 2017-08-08 15:18 | CP.PCM.DIS ---
Provider - Provider Date of Admission: 08/04/17 21:12 Attending physician: Guido Calles Jr, MD Time Spent in preparation of Discharge (in minutes): 35 Hospital Course - Lab Results Lab Results: Micro Results 08/06/17 23:17 Stool Stool Culture - Preliminary No growth. 08/06/17 23:17 Stool Ova and Parasite Concentrate Exam - Final 08/05/17 19:30 Blood Blood Culture - Preliminary NO GROWTH AFTER 48 HOURS 08/05/17 19:16 Blood Blood Culture - Preliminary NO GROWTH AFTER 48 HOURS Most Recent Lab Values WBC 2.4 K/uL (4.8-10.8) L 08/08/17 06:30 RBC 4.59 Mil/uL (3.80-5.20) 08/08/17 06:30 Hgb 14.5 g/dL (11.0-16.0) 08/08/17 06:30 Hct 40.6 % (34.0-47.0) 08/08/17 06:30 MCV 88.5 fL (81.0-99.0) 08/08/17 06:30 MCH 31.7 pg (27.0-31.0) H 08/08/17 06:30 MCHC 35.8 g/dL (33.0-37.0) 08/08/17 06:30 RDW 13.0 % (11.5-14.5) 08/08/17 06:30 Plt Count 80 K/uL (130-400) L 08/08/17 06:30 MPV 8.9 fL (7.2-11.7) 08/08/17 06:30 Neut % (Auto) 64.9 % (50.0-75.0) 08/08/17 06:30 Lymph % (Auto) 28.4 % (20.0-40.0) 08/08/17 06:30 [place] % (Auto) 6.4 % (0.0-10.0) 08/08/17 06:30 Eos % (Auto) 0.0 % (0.0-4.0) 08/08/17 06:30 Baso % (Auto) 0.3 % (0.0-2.0) 08/08/17 06:30 Neut # (Auto) 1.5 K/uL (1.8-7.0) L 05/22/18 06:30 Lymph # (Auto) 0.7 K/uL (1.0-4.3) L 08/08/17 06:30 [place] # (Auto) 0.2 K/uL (0.0-0.8) 08/08/17 06:30 Eos # (Auto) 0.0 K/uL (0.0-0.7) 08/08/17 06:30 Baso # (Auto) 0.0 K/uL (0.0-0.2) 08/08/17 06:30 Differential Comment 08/07/17 07:42 Smear Path Review 08/07/17 07:42 PT 14.3 SECONDS (9.7-12.2) H 08/04/17 23:32 INR 1.3 08/04/17 23:32 APTT 34 SECONDS (21-34) 08/04/17 23:32 Sodium 137 mmol/L (132-148) 08/08/17 06:30 Potassium 4.0 mmol/L (3.6-5.2) 08/08/17 06:30 Chloride 101 mmol/L (98-107) 08/08/17 06:30 Carbon Dioxide 26 mmol/L (22-30) 08/08/17 06:30 Anion Gap 14 (10-20) 08/08/17 06:30 BUN 12 mg/dL (7-17) 08/08/17 06:30 Creatinine 0.6 mg/dL (0.7-1.2) L 08/08/17 06:30 Est GFR ( Amer) > 60 08/08/17 06:30 Est GFR (Non-Af Amer) > 60 08/08/17 06:30 POC Glucose (mg/dL) 357 mg/dL (65-110) H 08/08/17 11:08 Random Glucose 277 mg/dL (65-105) H 08/08/17 06:30 Hemoglobin A1c 12.3 % (4.2-6.5) H D 08/05/17 08:07 Calcium 8.9 mg/dl (8.6-10.4) 08/08/17 06:30 Phosphorus 4.9 mg/dL (2.5-4.5) H 08/08/17 06:30 Magnesium 1.7 mg/dL (1.6-2.3) 08/08/17 06:30 Total Bilirubin 0.7 mg/dL (0.2-1.3) 08/08/17 06:30 AST 83 U/L (14-36) H 08/08/17 06:30 ALT 92 U/L (9-52) H 08/08/17 06:30 Alkaline Phosphatase 127 U/L (38-126) H 08/08/17 06:30 Total Protein 6.7 g/dL (6.3-8.3) 08/08/17 06:30 Albumin 3.2 g/dL (3.5-5.0) L 08/08/17 06:30 Globulin 3.5 gm/dL (2.2-3.9) 08/08/17 06:30 Albumin/Globulin Ratio 0.9 (1.0-2.1) L 08/08/17 06:30 Lipase 35 U/L (23-300) 08/04/17 17:53 Urine Color Straw (YELLOW) 08/08/17 14:49 Urine Clarity Clear (Clear) 08/08/17 14:49 Urine pH 6.0 (5.0-8.0) 08/08/17 14:49 Ur Specific [place] 1.008 (1.003-1.030) 08/08/17 14:49 Urine Protein Negative mg/dL (NEGATIVE) 08/08/17 14:49 Urine Glucose (UA) 3+ mg/dL (Normal) H 08/08/17 14:49 Urine Ketones Negative mg/dL (NEGATIVE) 08/08/17 14:49 Urine Blood Negative (NEGATIVE) 08/08/17 14:49 Urine Nitrate Negative (NEGATIVE) 08/08/17 14:49 Urine Bilirubin Negative (NEGATIVE) 08/08/17 14:49 Urine Urobilinogen Normal mg/dL (0.2-1.0) 08/08/17 14:49 Ur Leukocyte Esterase Neg Jina/uL (Negative) 08/08/17 14:49 Urine WBC (Auto) < 1 /hpf (0-5) 08/08/17 14:49 Urine RBC (Auto) < 1 /hpf (0-3) 08/08/17 14:49 Ur Squamous Epith Cells < 1 /hpf (0-5) 08/08/17 14:49 Stool Leukocytes, Qual Negative (NEGATIVE) 08/06/17 23:17 Hepatitis A IgM Ab Negative (NEGATIVE) 08/05/17 08:07 Hep Bs Antigen Negative (NEGATIVE) 08/05/17 08:07 Hep B Core IgM Ab Negative (NEGATIVE) 08/05/17 08:07 Hepatitis C Antibody Negative (NEGATIVE) 08/05/17 08:07 HIV 1&2 Antibody Screen Negative (NEGATIVE) 08/05/17 08:07 - Hospital Course Hospital Course: HPI: 62 year old female with past medical history of DM and diabetic neuropathy comes to the ER complaining of abdominal pain x 8days. Patient describes the pain as constant, cramping, 8/10. She has not taken anything for the pain. She did not come in for evaluation earlier because she thought it would resolve on its own. Patient has not eaten food in the last 2 days. Patient states that she has been vomiting for the last 2 days, including 5 times today, denies blood in the vomit. Yesterday patient states that she had a normal bowel movement, denies blood in stool. Patient states that she has chills. Patient denies fever, shortness of breath, chest pain, palpitations, diarrhea, and constipation. Hospital Course CT abdomen shows enteritis. Patient given antibiotics, fluids, and solumedrol. Patient was found to have hemoglobin A1c of 12.3. Patient states she had burning sensation with urination and minimal urine output. Patient had bladder scan performed which she voided and had 97cc left over after voiding. Patient instructed to follow up with Dr. Espinosa in one week for further workup. Urinalysis negative. Patient still complaining of abdominal pain, but patient is tolerating pain well. Patient instructed to hydrate, take antibiotics as tolerated and take medrol dose ayaz as tolerated. This is a brief summary of patient's stay. Please see EMR for further information. Dr. Guido Cruz DO PGY1 - Date & Time of H&P Date of H&P: 08/08/17 Time of H&P: 15:18 Discharge Exam - Head Exam Head Exam: ATRAUMATIC, NORMAL INSPECTION - Eye Exam Eye Exam: EOMI, Normal appearance - ENT Exam ENT Exam: Mucous Membranes Moist, Normal Exam - Neck Exam Neck exam: Full Rom - Respiratory Exam Respiratory Exam: Accessory Muscle Use, NORMAL BREATHING PATTERN. absent: Respiratory Distress - Cardiovascular Exam Cardiovascular Exam: REGULAR RHYTHM, +S1, +S2 - GI/Abdominal Exam GI & Abdominal Exam: Normal Bowel Sounds, Soft, Tenderness (mild tenderness in right lower quadrant and left lower quadrant) - Rectal Exam Rectal Exam: NORMAL INSPECTION - Extremities Exam Extremities exam: full ROM - Back Exam Back exam: FULL ROM - Neurological Exam Neurological exam: Alert, CN II-XII Intact, Normal Gait, Oriented x3 - Psychiatric Exam Psychiatric exam: Normal Affect, Normal Mood - Skin Skin Exam: Dry, Intact, Normal Color, Warm Discharge Plan - Discharge Medications Prescriptions: Insulin Detemir [Levemir] 16 unit SC Q12 30 Days unit Insulin Human Regular [Novolin R] 4 unit SC ACHS 30 Days unit - Follow Up Plan Condition: FAIR Disposition: HOME/ ROUTINE Additional Instructions: Patient to follow up with Dr. Espinosa for urinary symptoms. urinalysis negative at day of discharge. Patient instructed to take antibiotics as directed Patient instructed to take medrol dose ayaz as instructed
[2017-08-08] MEDS ORDERED: Morphine 4 MG/ML VIAL IV ONE (15:55)
--- NOTE | 2017-08-08 16:10 | CP.PCM.PN ---
Subjective - Date & Time of Evaluation Date of Evaluation: 08/08/17 Time of Evaluation: 16:08 - Subjective Subjective: Progress note for Dr. Calles Patient seen and examined at bedside. No acute events overnight. Today, patient had a Rapid response called for left sided chest pain. Patient said she had it in the past but was workedup by hvac project engineer with normal results. Patient was given toradol, morphine and oxygen nasal cannula. EKG showed normal sinus rhythm with low axis which was similar to her EKG in records from 2013. Dr. Calles was notified. Patient also had some difficulty urinating today. Patient can void on her own and bladder scan showed 97 cc. Patient's labs are stable except for glucose. Objective - Vital Signs/Intake and Output Vital Signs (last 24 hours): Temp Pulse Resp BP Pulse Ox 97.8 F 73 20 115/64 97 08/08/17 07:45 08/08/17 07:45 08/08/17 07:45 08/08/17 07:45 08/08/17 07:45 Intake and Output: 08/08/17 08/08/17 06:59 18:59 Intake Total 1400 1300 Balance 1400 1300 - Medications Medications: Current Medications Dextrose (Dextrose 50% Inj) 0 ml IV STAT PRN; Protocol PRN Reason: Hypoglycemia Protocol Dextrose (Glutose 15) 0 gm PO ONCE PRN; Protocol PRN Reason: Hypoglycemia Protocol Gabapentin (Neurontin) 300 mg PO BID [facility] Last Admin: 08/08/17 10:34 Dose: 300 mg Glucagon (Glucagen Diagnostic Kit) 0 mg IM STAT PRN; Protocol PRN Reason: Hypoglycemia Protocol Hydrocortisone (Anusol-Hc) 0 gm AR BID [facility] Last Admin: 08/08/17 10:44 Dose: 1 applic Ciprofloxacin (Cipro 400mg/200ml Dsw) 400 mg in 200 mls @ 133 mls/hr IVPB Q12H [facility]IN PRN Reason: Protocol Last Admin: 08/08/17 10:32 Dose: 133 mls/hr Metronidazole (Flagyl) 500 mg in 100 mls @ 100 mls/hr IVPB Q8 JUSTIN PRN Reason: Protocol Last Admin: 08/08/17 14:01 Dose: 100 mls/hr Sodium Chloride (Sodium Chloride 0.9%) 1,000 mls @ 100 mls/hr IV .Q10H [facility] Last Admin: 08/08/17 12:21 Dose: 100 mls/hr Dextrose (Dextrose 5% In Water 1000 Ml) 1,000 mls @ 0 mls/hr IV .Q0M PRN; Protocol; Per Protocol PRN Reason: Hypoglycemia Protocol Insulin Detemir (Levemir) 16 unit SC Q12 [facility] Last Admin: 08/08/17 10:39 Dose: 16 unit Insulin Human Regular (Novolin R) 0 unit SC ACHS [facility] PRN Reason: Protocol Last Admin: 08/08/17 12:25 Dose: 10 unit Methylprednisolone (Solu-Medrol) 40 mg IVP Q12 [facility] Last Admin: 08/08/17 10:35 Dose: 40 mg Metoclopramide HCl (Reglan) 10 mg IVP Q6H PRN PRN Reason: Nausea/Vomiting Pantoprazole Sodium (Protonix Inj) 40 mg IVP Q12H [facility] Last Admin: 08/08/17 10:36 Dose: 40 mg - Labs Labs: 08/08/17 06:30 08/08/17 06:30 PT 14.3 SECONDS (9.7-12.2) H 08/04/17 23:32 INR 1.3 08/04/17 23:32 APTT 34 SECONDS (21-34) 08/04/17 23:32 - Additional Findings Additional findings: - Constitutional Appears: Non-toxic, No Acute Distress - Head Exam Head Exam: ATRAUMATIC, NORMAL INSPECTION - Eye Exam Eye Exam: EOMI, Normal appearance, PERRL. absent: Scleral icterus Pupil Exam: NORMAL ACCOMODATION - ENT Exam ENT Exam: Mucous Membranes Moist - Respiratory Exam Respiratory Exam: Clear to Auscultation Bilateral, NORMAL BREATHING PATTERN. absent: Rales, Rhonchi, Wheezes, Stridor - Cardiovascular Exam Cardiovascular Exam: REGULAR RHYTHM, RRR, +S1, +S2 - GI/Abdominal Exam GI & Abdominal Exam: Normal Bowel Sounds, Soft. absent: Distended, Guarding, Tenderness - Extremities Exam Extremities exam: Positive for: normal capillary refill, normal inspection, pedal pulses present. Negative for: pedal edema, tenderness - Neurological Exam Neurological exam: Alert, Oriented x3 - Psychiatric Exam Psychiatric exam: Normal Affect, Normal Mood - Skin Skin Exam: Normal Color Assessment and Plan - Assessment and Plan (Free Text) Assessment: LUQ abdominal pain - secondary to possible enteritis - Afebrile overnight - Lipase 35 - CT abdomen/pelvis: Cirrhosis with splenomegaly; possible enteritis, no obstruction. blood cultures negative - Medications: * Cipro 400mg q12h * Flagyl 500mg q8h * Protonix 40mg q12h= - diet advanced to soft Leukopenia - WBC 3.0 - f/u HIV, hepatitis - Continue to monitor History of Hepatitis - Patient does not know what kind - f/u hepatitis Panel Transaminitis - possibly secondary to hepatitis/cirrhosis - AST/ALT: 79/92 - Continue to monitor Elevated INR INR 1.3 etiology: cirrhosis Thrombocytopenia - continue to monitor - f/u HIV Diabetes Mellitus, uncontrolled - A1c 12.3 - Accu checks - HISS - Levemir 16 u BID increased from 10 u BID will continue to follow up. of note, patient is currently on solumedrol. - Hypoglycemia protocol Diabetic peripheral neuropathy - continue Gabapentin 300mg bid Electrolyte abnormality Mg 1.5, repleted Prophylaxis - VTE contraindication due to thrombocytopenia - SCDs - Protonix 40mg q12h Disposition: Dr. Marli Cruz, DO PGY1
[2017-08-08 16:47] LABS: CK-MB 0.89 ng/mL (0.0-3.38)
--- NOTE | 2017-08-08 17:00 | PCM.RRT ---
<AnthonyEssie - Last Filed: 08/08/17 16:57> [employer] FOUNTAIN MANAGER Nurses Assessment - Situation Date: 08/08/17 Time SODA FOUNTAIN MANAGER was called: 15:49 [employer]A FOUNTAIN MANAGER Responder Arrival Time:: 15:50 SODA FOUNTAIN MANAGER Location:: 3T Med/Oncology - IV IV Inserted during SODA FOUNTAIN MANAGER?: No - Respiratory [employer] FOUNTAIN MANAGER Delivery Method: Nasal Cannula @L/min Oxygen Flow Rate: 3 - Medication Medications Administered During SODA FOUNTAIN MANAGER: morphine, toradol - Diagnostic Test Ordered EKG: Yes Chest X-Ray: Yes CT Scan: No - Stat Labs Ordered [employer] FOUNTAIN MANAGER Stat Labs Ordered: TROPONIN CPR started during SODA FOUNTAIN MANAGER?: No - Vital Signs Vital Signs: 15:30 123/73 RR 20 97%, 97.6F 15:53 100% NC, HR 92 medication delivered 16:01 143/66 I.Reason for [employer]A FOUNTAIN MANAGER - A) Acute Change in Patient: Subjective: SODA FOUNTAIN MANAGER called 15:49 because of sudden left sided chest pain. Patient was nervous upon arrival Vitals were taken, patient was put on monitor. EKG was drawn. first set of ROMIs drawn and second set ordered later. ASA 325mg PO once was ordered as well. - Neurological Status (Select all that apply): Alert, Responsive, Oriented, Verbal, Follows Commands. absent: Disoriented, Confused, Aggressive, Weakness - Respiratory Oxygen Delivery Method: Nasal Cannula @L/min - Constitutional Appears: Non-toxic, No Acute Distress - Head Head Exam: ATRAUMATIC, NORMAL INSPECTION, NORMOCEPHALIC - Eyes Eye Exam: EOMI, Normal appearance - Respiratory Exam Respiratory Exam: Clear to Ausculation Bilateral, NORMAL BREATHING PATTERN. absent: Respiratory Distress - Cardiovascular Exam Cardiovascular Exam: REGULAR RHYTHM, +S1, +S2. absent: Bradycardia, Tachycardia - GI/Abdominal Exam GI & Abdominal Exam: Soft, Normal Bowel Sounds. absent: Tenderness - Neurological Exam Neurological Exam: Alert, Awake, CN II-XII Intact, Normal Gait - Extremities Exam Extremities Exam: Full ROM, Normal Capillary Refill, Normal Inspection Plan - Assessment of Findings&Treatment Plan f/u CLEMENCIA at 23:00 and EKG f/u CXR <Chanel Russell V - Last Filed: 08/08/17 23:37> Attending/Attestation - Attestation Notes (Text): Hospitalist Brief Note Responded to [employer] FOUNTAIN MANAGER for patient. RN called for chest pain. Patient currently being treated for colitis and was set for discharge today. Patient report all of sudden she had chest pain, nonradiating, does not vary with breathing, hurts when she presses hard on chest. Patient is a diabetic and reports was evaluated by onsite health coach in the past and reports she was fine. Patient ordered for Aspirin 325mg PO X1, Morphine 2mg IV X1. Prior to administration of medications, patient reports she was feeling well and chest pain had improved. EKG shows nsr, w flipped t waves in lateral lead that she has had consistent to prior EKG in review of EMR. CLEMENCIA collected which was negative. Ordered for additional CLEMENCIA for later. chest xray normal. Advised resident to informed patient's PMD since patient was set for discharge today.
--- NOTE | 2017-08-08 17:32 | RAD ---
HISTORY: chest pain COMPARISON: No prior. FINDINGS: LUNGS: The lungs are well inflated and clear. PLEURA: No significant pleural effusion identified, no pneumothorax apparent. CARDIOVASCULAR: Normal. OSSEOUS STRUCTURES: No significant abnormalities. VISUALIZED UPPER ABDOMEN: Normal. OTHER FINDINGS: None. IMPRESSION: No active pulmonary disease.
[2017-08-08 22:56] LABS: CK-MB 0.69 ng/mL (0.0-3.38)
[2017-08-09] MEDS: metroNIDAZOLE IV 500 mg/100 ml 500 MG/100 ML BAG IVPB SCH ×2 (05:00→14:38)
[2017-08-09] MEDS: (Novolin R) Insulin Human Regular 100 units/ml vial SC SCH ×2 (08:02→13:05)
[2017-08-09 08:13] LABS: BASO % 0.1 % (0.0-2.0); EOS % 0.1 % (0.0-4.0); HEMOGLOBIN 14.6 g/dL (11.0-16.0); LYMPH % 23.4 % (20.0-40.0); MEAN CELL VOLUME 89.5 fL (81.0-99.0); MEAN CORPUSCULAR HEMOGLOBIN 31.2 pg (27.0-31.0); MEAN CORPUSCULAR HGB CONC 34.8 g/dL (33.0-37.0); MEAN PLATELET VOLUME 8.5 fL (7.2-11.7); MONO # 0.5 K/uL (0.0-0.8); MONO % 11.8 % (0.0-10.0); NEUT # 2.7 K/uL (1.8-7.0); NEUT % 64.6 % (50.0-75.0); NRBC % 0.1 % (0.0-2.0); RBC 4.67 Mil/uL (3.80-5.20); RED CELL DISTRIBUTION WIDTH 13.6 % (11.5-14.5)
[2017-08-09 08:19] LABS: WHITE BLOOD COUNT 4.3 K/uL (4.8-10.8)
[2017-08-09 08:34] LABS: ALB/GLOB RATIO 0.9 (1.0-2.1); ALBUMIN 3.4 g/dL (3.5-5.0); AST/SGOT 60 U/L (14-36); BLOOD UREA NITROGEN 17 mg/dL (7-17); CALCIUM 9.1 mg/dl (8.6-10.4); GFR AFRICAN-AMERICAN > 60; GFR NON-AFRICAN AMERICAN > 60
[2017-08-09 08:41] LABS: ALT/SGPT 70 U/L (9-52)
[2017-08-09] MEDS: MethylPREDNISolone 40 mg Vial IVP SCH (10:55)
[2017-08-09] MEDS: Hydrocortisone 2.5% Rectal Cream(30 gm) PR SCH (10:56)
[2017-08-09] MEDS: Insulin Detemir 100 units/ml Vial (Levemir) SC SCH (10:56)
[2017-08-09] MEDS: Ciprofloxacin 400mg/200ml D5W 400 MG/200 ML BAG IVPB SCH (10:57)
--- NOTE | 2017-08-09 12:23 | CP.PCM.DIS ---
Provider - Provider Date of Admission: 08/04/17 21:12 Attending physician: Guido Calles Jr, MD Time Spent in preparation of Discharge (in minutes): 35 Hospital Course - Lab Results Lab Results: Micro Results 08/08/17 14:49 Urine Urine Culture - Final No Growth (<1,000 CFU/ML) 08/06/17 23:17 Stool Stool Culture - Final NO SALMONELLA, SHIGELLA OR CAMPYLOBACTER ISOLATED. 08/06/17 23:17 Stool Ova and Parasite Concentrate Exam - Final 08/05/17 19:30 Blood Blood Culture - Preliminary NO GROWTH AFTER 3 DAYS 08/05/17 19:16 Blood Blood Culture - Preliminary NO GROWTH AFTER 3 DAYS Most Recent Lab Values WBC 4.3 K/uL (4.8-10.8) L D 08/09/17 08:00 RBC 4.67 Mil/uL (3.80-5.20) 08/09/17 08:00 Hgb 14.6 g/dL (11.0-16.0) 08/09/17 08:00 Hct 41.8 % (34.0-47.0) 08/09/17 08:00 MCV 89.5 fL (81.0-99.0) 08/09/17 08:00 MCH 31.2 pg (27.0-31.0) H 08/09/17 08:00 MCHC 34.8 g/dL (33.0-37.0) 08/09/17 08:00 RDW 13.6 % (11.5-14.5) 08/09/17 08:00 Plt Count 96 K/uL (130-400) L 08/09/17 08:00 MPV 8.5 fL (7.2-11.7) 08/09/17 08:00 Neut % (Auto) 64.6 % (50.0-75.0) 08/09/17 08:00 Lymph % (Auto) 23.4 % (20.0-40.0) 08/09/17 08:00 Murray % (Auto) 11.8 % (0.0-10.0) H 08/09/17 08:00 Eos % (Auto) 0.1 % (0.0-4.0) 08/09/17 08:00 Baso % (Auto) 0.1 % (0.0-2.0) 08/09/17 08:00 Neut # (Auto) 2.7 K/uL (1.8-7.0) 08/09/17 08:00 Lymph # (Auto) 1.0 K/uL (1.0-4.3) 08/09/17 08:00 Murray # (Auto) 0.5 K/uL (0.0-0.8) 08/09/17 08:00 Eos # (Auto) 0.0 K/uL (0.0-0.7) 08/09/17 08:00 Baso # (Auto) 0.0 K/uL (0.0-0.2) 08/09/17 08:00 Differential Comment 08/07/17 07:42 Smear Path Review 08/07/17 07:42 PT 14.3 SECONDS (9.7-12.2) H 08/04/17 23:32 INR 1.3 08/04/17 23:32 APTT 34 SECONDS (21-34) 08/04/17 23:32 Sodium 138 mmol/L (132-148) 08/09/17 08:00 Potassium 4.3 mmol/L (3.6-5.2) 08/09/17 08:00 Chloride 100 mmol/L (98-107) 08/09/17 08:00 Carbon Dioxide 27 mmol/L (22-30) 08/09/17 08:00 Anion Gap 16 (10-20) 08/09/17 08:00 BUN 17 mg/dL (7-17) 08/09/17 08:00 Creatinine 0.6 mg/dL (0.7-1.2) L 08/09/17 08:00 Est GFR ( Amer) > 60 08/09/17 08:00 Est GFR (Non-Af Amer) > 60 08/09/17 08:00 POC Glucose (mg/dL) 321 mg/dL (65-110) H 08/09/17 11:36 Random Glucose 295 mg/dL (65-105) H 08/09/17 08:00 Hemoglobin A1c 12.3 % (4.2-6.5) H D 08/05/17 08:07 Calcium 9.1 mg/dl (8.6-10.4) 08/09/17 08:00 Phosphorus 4.9 mg/dL (2.5-4.5) H 08/08/17 06:30 Magnesium 1.7 mg/dL (1.6-2.3) 08/08/17 06:30 Total Bilirubin 0.7 mg/dL (0.2-1.3) 08/09/17 08:00 AST 60 U/L (14-36) H D 08/09/17 08:00 ALT 70 U/L (9-52) H D 08/09/17 08:00 Alkaline Phosphatase 113 U/L (38-126) 08/09/17 08:00 Total Creatine Kinase 37 U/L (30-135) 08/08/17 22:28 CK-MB (Mass) 0.69 ng/mL (0.0-3.38) 08/08/17 22: Troponin I < 0.0120 ng/mL (0.00-0.120) 08/08/17 22:28 Total Protein 7.1 g/dL (6.3-8.3) 08/09/17 08:00 Albumin 3.4 g/dL (3.5-5.0) L 08/09/17 08:00 Globulin 3.7 gm/dL (2.2-3.9) 08/09/17 08:00 Albumin/Globulin Ratio 0.9 (1.0-2.1) L 08/09/17 08:00 Lipase 35 U/L (23-300) 08/04/17 17:53 Urine Color Straw (YELLOW) 08/08/17 14:49 Urine Clarity Clear (Clear) 08/08/17 14:49 Urine pH 6.0 (5.0-8.0) 08/08/17 14:49 Ur Specific Section 1.008 (1.003-1.030) 08/08/17 14:49 Urine Protein Negative mg/dL (NEGATIVE) 08/08/17 14:49 Urine Glucose (UA) 3+ mg/dL (Normal) H 08/08/17 14:49 Urine Ketones Negative mg/dL (NEGATIVE) 08/08/17 14:49 Urine Blood Negative (NEGATIVE) 08/08/17 14:49 Urine Nitrate Negative (NEGATIVE) 08/08/17 14:49 Urine Bilirubin Negative (NEGATIVE) 08/08/17 14:49 Urine Urobilinogen Normal mg/dL (0.2-1.0) 08/08/17 14:49 Ur Leukocyte Esterase Neg Jina/uL (Negative) 08/08/17 14:49 Urine WBC (Auto) < 1 /hpf (0-5) 08/08/17 14:49 Urine RBC (Auto) < 1 /hpf (0-3) 08/08/17 14:49 Ur Squamous Epith Cells < 1 /hpf (0-5) 08/08/17 14:49 Stool Leukocytes, Qual Negative (NEGATIVE) 08/06/17 23:17 Hepatitis A IgM Ab Negative (NEGATIVE) 08/05/17 08:07 Hep Bs Antigen Negative (NEGATIVE) 08/05/17 08:07 Hep B Core IgM Ab Negative (NEGATIVE) 08/05/17 08:07 Hepatitis C Antibody Negative (NEGATIVE) 08/05/17 08:07 HIV 1&2 Antibody Screen Negative (NEGATIVE) 08/05/17 08:07 - Hospital Course Hospital Course: HPI: 62 year old female with past medical history of DM and diabetic neuropathy comes to the ER complaining of abdominal pain x 8days. Patient describes the pain as constant, cramping, 8/10. She has not taken anything for the pain. She did not come in for evaluation earlier because she thought it would resolve on its own. Patient has not eaten food in the last 2 days. Patient states that she has been vomiting for the last 2 days, including 5 times today, denies blood in the vomit. Yesterday patient states that she had a normal bowel movement, denies blood in stool. Patient states that she has chills. Patient denies fever, shortness of breath, chest pain, palpitations, diarrhea, and constipation. Hospital Course CT abdomen shows enteritis. Patient given antibiotics, fluids, and solumedrol. Patient was found to have hemoglobin A1c of 12.3. Patient states she had burning sensation with urination and minimal urine output. Patient had bladder scan performed which she voided and had 97cc left over after voiding. Patient instructed to follow up with Dr. Espinosa in one week for further workup. Urinalysis negative. Patient still complaining of abdominal pain, but patient is tolerating pain well. Patient instructed to hydrate, take antibiotics as tolerated and take medrol dose ayaz as tolerated. Patient had a rapid response called 08/08/17. Patient had chest pain on left chest. Troponins Negative x 3. EKG normal at baseline. slightly smaller axis than before. Patient seen and examined 08/09 and states she has no chest pain. Patient is medically stable for discharge and to follow up with Dr. Espinosa for further workup and management. This is a brief summary of patient's stay. Please see EMR for further information. Dr. Guido Cruz DO PGY1 - Date & Time of H&P Date of H&P: 08/09/17 Time of H&P: 12:22 Discharge Exam - Additional Findings Additional findings: - Head Exam Head Exam: ATRAUMATIC, NORMAL INSPECTION - Eye Exam Eye Exam: EOMI, Normal appearance - ENT Exam ENT Exam: Mucous Membranes Moist, Normal Exam - Neck Exam Neck exam: Full Rom - Respiratory Exam Respiratory Exam: Accessory Muscle Use, NORMAL BREATHING PATTERN. absent: Respiratory Distress - Cardiovascular Exam Cardiovascular Exam: REGULAR RHYTHM, +S1, +S2 - GI/Abdominal Exam GI & Abdominal Exam: Normal Bowel Sounds, Soft, Tenderness (mild tenderness in right lower quadrant and left lower quadrant) - Rectal Exam Rectal Exam: NORMAL INSPECTION - Extremities Exam Extremities exam: full ROM - Back Exam Back exam: FULL ROM - Neurological Exam Neurological exam: Alert, CN II-XII Intact, Normal Gait, Oriented x3 - Psychiatric Exam Psychiatric exam: Normal Affect, Normal Mood - Skin Skin Exam: Dry, Intact, Normal Color, Warm Discharge Plan - Discharge Medications Prescriptions: Methylprednisolone [Medrol Dose Pack (21 tabs)] 4 mg PO DAILY #21 mg - Follow Up Plan Condition: FAIR Disposition: HOME/ ROUTINE Instructions: Acute Abdominal Pain (DC), Acute Abdominal Pain (GEN) Additional Instructions: Patient to follow up with Dr. Espinosa for urinary symptoms. urinalysis negative at day of discharge. Patient instructed to take antibiotics as directed Patient instructed to take medrol dose ayaz as instructed Patient to be discharged to follow up for high hgb a1c of 12.3 found on admission. check glucose check in morning, before breakfast, before lunch, before dinner, before bed.
--- NOTE | 2017-08-09 13:16 | CARD ---
APPROVED REPORT EKG Measurement Heart [id number] <Conclusion> Normal sinus rhythm Low voltage QRS Inferior infarct, age undetermined T wave abnormality, consider anterior ischemia Abnormal ECG
[2017-08-09 17:02] VITALS: BP 134/86; PULSE 71; TEMP 98.2
== END 2017-08-09 15:00 | disposition home or self-care (01) | DRG 813 ==
LOC: C.ER 16:26 → C.9E 21:12 → C.3T 23:28
PROVIDERS: ADMIT Internal Medicine; ATTEND Internal Medicine
DX: K52.9 Noninfective gastroenteritis and colitis, unspecified (principal); K74.60 Unspecified cirrhosis of liver; K56.7 Ileus, unspecified; E11.40 Type 2 diabetes mellitus with diabetic neuropathy, unspecified; E11.65 Type 2 diabetes mellitus with hyperglycemia; R16.1 Splenomegaly, not elsewhere classified; R07.89 Other chest pain; E78.00 Pure hypercholesterolemia, unspecified; Z90.49 Acquired absence of other specified parts of digestive tract; Z79.84 Long term (current) use of oral hypoglycemic drugs; Z98.51 Tubal ligation status

== ENCOUNTER 2017-12-28 17:15 | Emergency (ER) | payer OTHER ==
[2017-12-28 17:16] VITALS: BMI 38.1
[2017-12-28 17:22] VITALS: RESP 20; TEMP 98.6; O2SAT 99
--- NOTE | 2017-12-28 18:02 | C.PDOC ---
History Of Present Illness 62 y/o female with PMH of DM who presents to ED c/o left ankle pain x 15 days s/p injury. Pt was walking upstairs when she tripped and hit her ankle and foot against a stone step. Pt has immediate pain and swelling to the left ankle, but was able to bear weight. Pt denies head strike. Pt thought the pain would get better over time, but it has not. She is taking unknown pain medication without relief. Denies fevers, chills, knee pain, back pain, numbness, paresthesias to extremity. Chief Complaint (Nursing): Lower Extremity Problem/Injury History Per: Patient Past Medical History Reviewed: Historical Data, Nursing Documentation, Vital Signs Vital Signs: Last Vital Signs Temp 98.6 F 12/28/17 17:18 Pulse 78 12/28/17 17:18 Resp 20 12/28/17 17:18 BP 118/74 12/28/17 17:18 Pulse Ox 99 12/28/17 17:18 - Medical History PMH: Arthritis, Cardia Arrhythmia, Diabetes, Gastritis, Gall Bladder Disease, Hypercholesterolemia Denies: Chronic Kidney Disease Surgical History: Cholecystectomy, Endoscopy - [facility] Procedures CLOSURE SKIN & SUBCUTANEOUS NEC (07/21/14) DESTRUCT ABD WALL LESION (01/17/14) ESOPHAGOGASTRODUODENOSCOPY [EGD] W/CLOSED BIOPSY (03/10/14) TETANUS TOXOID ADMINIST (07/21/14) Family History: States: Unknown Family Hx - Social History Hx Tobacco Use: No Hx Alcohol Use: No Hx Substance Use: No - Immunization History Hx Tetanus Toxoid Vaccination: No Hx Influenza Vaccination: No Hx Pneumococcal Vaccination: No Review Of Systems Constitutional: Negative for: Fever, Chills, Sweats Eyes: Negative for: Pain ENT: Negative for: Ear Pain, Nose Pain, Mouth Pain, Throat Pain Cardiovascular: Negative for: Chest Pain, Palpitations Respiratory: Negative for: Cough, Shortness of Breath Gastrointestinal: Negative for: Nausea, Vomiting, Abdominal Pain Musculoskeletal: Positive for: Leg Pain (left ankle), Foot Pain (left ankle). Negative for: Neck Pain, Shoulder Pain, Arm Pain, Back Pain, Hand Pain Skin: Positive for: Bruising (left foot and ankle). Negative for: Rash, Lesions Neurological: Negative for: Weakness, Numbness, Headache, Dizziness Physical Exam - Physical Exam Appears: Well, Non-toxic, No Acute Distress Skin: Warm, Dry, Ecchymosis (medial left ankle), Other (swelling medial right ankle) Head: Atraumatic, Normacephalic Eye(s): bilateral: Normal Inspection, PERRL, EOMI Oral Mucosa: Moist Cardiovascular: Rhythm Regular Respiratory: Normal Breath Sounds Back: Normal Inspection, No Vertebral Tenderness, No Decreased ROM Extremity: Normal ROM, Tenderness (medial left ankle), No Calf Tenderness, No Deformity, Swelling (medial right ankle) Pulses: Left Dorsalis Pedis: Normal, Right Dorsalis Pedis: Normal Neurological/Psych: Oriented x3, Normal Speech, Normal Cognition, Normal Cranial Nerves, Normal Motor, Normal Sensation Gait: Steady ED Course And Treatment O2 Sat by Pulse Oximetry: 99 Medical Decision Making Medical Decision Makin62 y/o female with PMH of DM who presents to ED c/o left ankle pain x 15 days s/p injury. Pt was walking upstairs when she tripped and hit her ankle and foot against a stone step. Pt has immediate pain and swelling to the left ankle, but was able to bear weight. Pt denies head strike. Pt thought the pain would get better over time, but it has not. She is taking unknown pain medication without relief. Denies fevers, chills, knee pain, back pain, numbness, paresthesias to extremity. Exam: swelling and tenderness with ecchymosis to medial left ankle. FROM. neurovascularly intact. Normal right foot, knee, foot exam. Initial plan: Left ankle xray tylenol Radiology called for possible calcaneal fracture on xray, advised Left leg CT to r/o fracture. CT left leg: Mild subcutaneous swelling, posttraumatic Large plantar calcaneal spur. Degenerative changes tarsal joints. No acute abnormality evident on examination of the left ankle otherwise. Impression: ankle sprain Plan: Take ibuprofen 600mg every 6 hours with food for pain keep area compressed, elevated, and rested Followup with orthopedics if persistent pain in 1 week Return to ED if pain worsens Disposition - Disposition Referrals: Arline Mckee MD [Staff Provider] - Disposition: HOME/ ROUTINE Disposition Time: 21:01 Condition: IMPROVED Additional Instructions: [place] ibuprofeno 600 mg cada 6 horas con alimento para el dolor. Mantenga el raghavendra comprimida, elevada y descansada. Seguimiento con ortopedia en garo de dolor persistente en 1 semana. Volver a la disfuncin erctil si el dolor empeora. Prescriptions: Ibuprofen [Motrin Tab] 600 mg PO Q6H PRN #30 tab PRN Reason: Pain, Moderate (4-7) Forms: Gen Discharge Inst [facility], [facility] ([facility]) Print Language: SPA - Clinical Impression Clinical Impression: Ankle sprain
--- NOTE | 2017-12-28 18:40 | RAD ---
PROCEDURE: Left Ankle Radiographs. HISTORY: ankle pain s/p trauma COMPARISON: None FINDINGS: BONES: Anterior calcaneous appears fragmented inferiorly on lateral view. JOINTS: No dislocation. SOFT TISSUES: Soft tissue swelling. No evidence of radiopaque foreign body. OTHER FINDINGS: None. IMPRESSION: Soft tissue swelling. Anterior calcaneus appears fragmented inferiorly on lateral view. Recommend CT for further evaluation. Fracture is suspected. Findings discussed with Angela Fuentes on 12/28/17 at 6:33 p.m.
[2017-12-28 22:07] VITALS: BP 122/60; PULSE 70
--- NOTE | 2017-12-29 08:35 | CT ---
CT left ankle HISTORY: Trauma. COMPARISON: X-ray dated 12/28/2017 Technique: Multiple contiguous axial images were performed through the left ankle without the use of intravenous contrast. Subsequently, sagittal coronal reformatted images were obtained. This CT exam was performed using one or more of the following dose reduction techniques: Automated exposure control, adjustment of the mA and/or kV according to patient size, and/or use of iterative reconstruction technique. Findings: No evidence for acute displaced fracture dislocation. Mild medial and lateral malleolar soft tissue swelling. Prominent plantar and dorsal calcaneal spurring. In addition, there are large lobulated calcifications/ossifications measuring up to 6, 4, and 3 millimeters seen at the level of the plantar fascia approximately 2.5 centimeters from its insertion on the inferior calcaneus. This is of uncertain clinical etiology and may be the sequelae of prior plantar fascial injury versus fibrosis versus degenerative change versus additional etiology. Clinical correlation. Narrowing of the tibiotalar joint space. Degenerative changes noted at the dorsal aspect of the talonavicular joint space. Two ossific densities seen adjacent to the navicular bone medially suggestive for accessory ossicles. Multiple ossific densities seen distal to the medial malleolus measuring up to 4 millimeters. These are of uncertain clinical etiology and may represent loose osteochondral bodies versus accessory ossicles versus additional etiology. Clinical correlation. Two well corticated ossific densities seen adjacent to the cuboid bone laterally suggestive for accessory ossicles. Clinical correlation. Limited evaluation of the forefoot given suboptimal technique and plane of section. Impression: 1. No evidence for acute displaced fracture dislocation. 2. Mild medial and lateral malleolar soft tissue swelling. 3. Prominent plantar and dorsal calcaneal spurring. In addition, there are large lobulated calcifications/ossifications measuring up to 6, 4, and 3 millimeters seen at the level of the plantar fascia approximately 2.5 centimeters from its insertion on the inferior calcaneus. This is of uncertain clinical etiology and may be the sequelae of prior plantar fascial injury versus fibrosis versus degenerative change versus additional etiology. Clinical correlation. 4. Narrowing of the tibiotalar joint space. Degenerative changes noted at the dorsal aspect of the talonavicular joint space. 5. Two ossific densities seen adjacent to the navicular bone medially suggestive for accessory ossicles. Multiple ossific densities seen distal to the medial malleolus measuring up to 4 millimeters. These are of uncertain clinical etiology and may represent loose osteochondral bodies versus accessory ossicles versus additional etiology. Clinical correlation. Two well corticated ossific densities seen adjacent to the cuboid bone laterally suggestive for accessory ossicles. Clinical correlation. If pain persists, consider MRI. These findings were preliminarily reported at 8:51 p.m. on 12/28/[address] Adrian Retana from [facility]
== END 2017-12-28 21:40 | disposition home or self-care (01) ==
LOC: C.ER 17:15
DX: S93.402A Sprain of unspecified ligament of left ankle, initial encounter (principal); W18.40XA Slipping, tripping and stumbling without falling, unspecified, initial encounter